=== PATIENT | female | born 1985 | race Caucasian/White ===

== ENCOUNTER → 2020-03-15 10:50 | Outpatient (BNVA) | payer OTHER, SELFPAY | PROVIDERS: PCP Internal Medicine; Referring Provider Internal Medicine; Visit Provider Surgery | DX: K60.2 Anal fissure, unspecified (principal); K64.8 Other hemorrhoids | CPT/HCPCS: 99202 ==

== ENCOUNTER 2020-03-30 08:03 | Day surgery (SDC) | payer OTHER, SELFPAY ==
[2020-03-27 10:45] VITALS: BMI 26.6
--- NOTE | 2020-03-29 09:23 | HO.ANESPROP2 ---
Documented by User: Caroline Jaimes 03/29/20 09:27 HPI - Anesthesia Eval Consult details Narrative: 34yo F for Lateral Internal Sphincterotomy, Poss Hemorrhoidectomy, EUA PMFSH Past Medical History Medical History (Updated 03/30/20 @ 11:52 by Samantha Gaspar) Acid reflux Anal fissure Asthma Sleep apnea Family History Family History Paternal Grandfather History of cancer of unknown primary site Maternal Grandmother History of leukemia Surgical History Surgical History (Updated 03/30/20 @ 11:49 by Samantha Gaspar) History of section History of gastric bypass History of tonsillectomy Tubal ligation status Social History Social History (Updated 03/30/20 @ 10:28 by Samantha Gaspar) Alcohol intake: never Smoking Status: Current every day smoker Smoked in Last 30 Days: Yes Advance Directives: No Advance Directives Information Provided: No Advance Directives on File: No Meds Allergies Allergy/AdvReac Type Severity Reaction Status Date / Time acetaminophen [From Tylenol] Allergy swelling Verified 03/15/20 11:01 of face and neck, hives Home Medications Medication Instructions Recorded Confirmed Type albuterol sulfate 90 mcg/actuation 2 puff INHALATION Q4H PRN 03/15/20 03/27/20 History aerosol inhaler cetirizine 10 mg tablet 10 mg PO DAILY 03/15/20 03/27/20 History multivitamin 1 tab PO DAILY 03/15/20 03/27/20 History pantoprazole 40 mg tablet,delayed 40 mg PO DAILY 03/15/20 03/30/20 History release sennosides 8.6 mg-docusate sodium 1 tab PO DAILY 03/15/20 03/27/20 History 50 mg tablet zinc oxide 13 % topical cream 1 applic TOPICAL DAILY 03/15/20 03/27/20 History Exam Exam Date and Time: March 29, 2020 0923 Height,Weight and Vital Signs: Height 4 ft 11 in Weight 59.874 kg Assessment and Plan Assessment Anesthesia Assessment: Chart Reviewed Documented by User: Samantha Gaspar 03/30/20 11:52 [facility] Past Medical History Medical History (Updated 03/30/20 @ 11:52 by Samantha Gaspar) Acid reflux Anal fissure Asthma Sleep apnea Family History Family History Paternal Grandfather History of cancer of unknown primary site Maternal Grandmother History of leukemia Family history of problems with anesthesia: No Surgical History Surgical History (Updated 03/30/20 @ 11:49 by Samantha Gaspar) History of section History of gastric bypass History of tonsillectomy Tubal ligation status History of Problems with Anesthesia: No Social History Social History (Updated 03/30/20 @ 10:28 by Samantha Gaspar) Alcohol intake: never Smoking Status: Current every day smoker Smoked in Last 30 Days: Yes Advance Directives: No Advance Directives Information Provided: No Advance Directives on File: No Meds Allergies Allergy/AdvReac Type Severity Reaction Status Date / Time acetaminophen [From Tylenol] Allergy swelling Verified 03/15/20 11:01 of face and neck, hives Home Medications Medication Instructions Recorded Confirmed Type albuterol sulfate 90 mcg/actuation 2 puff INHALATION Q4H PRN 03/15/20 03/27/20 History aerosol inhaler cetirizine 10 mg tablet 10 mg PO DAILY 03/15/20 03/27/20 History multivitamin 1 tab PO DAILY 03/15/20 03/27/20 History pantoprazole 40 mg tablet,delayed 40 mg PO DAILY 03/15/20 03/30/20 History release sennosides 8.6 mg-docusate sodium 1 tab PO DAILY 03/15/20 03/27/20 History 50 mg tablet zinc oxide 13 % topical cream 1 applic TOPICAL DAILY 03/15/20 03/27/20 History Exam Height,Weight and Vital Signs: Vital Signs Temp Pulse Resp BP Pulse Ox 03/30/20 08:24 98.3 F 73 16 97/54 L 97 Airway Mallampati Class: II TM Dist: >3cm Neck ROM: Full Heart: RRR Lungs: CTAB Assessment and Plan Assessment Anesthesia Assessment: Anesthesia Plan Discussed and Chart Reviewed Final Anesthetic Review NPO: Yes ASA Class: II Final Preanesthetic Review: No Changes in Pt Med Stat, Meds/Allgs Chart Reviewed and Consent Obtained/Reviewed Patient Risk: Low Procedure Risk: Low Anesthetic Plan Anesthetic Plan: GA Disposition: Standard PACU
[2020-03-30] VITALS (7 sets, daily range): BP systolic 97–118; BP diastolic 54–73; PULSE 71–96; RESP 16–20; TEMP 36.2–36.8; O2SAT 97–100
[2020-03-30] MEDS: Lactated Ringers 1,000 ML 100 ML IVCONT (08:26)
--- NOTE | 2020-03-30 09:10 | MHC.SHP ---
Pre-Procedural Eval Section A The patient is an INPATIENT: No Changes since office visit: Yes Patient answered all questions; No Cold of Flu in the past 2 weeks, No New Medical Problems and No Changes in Medication The History & Physical has been completed within 30 days and I have reviewed it.: Yes Section B Chief Complaint: Hemorrhoid Prolapse, Anal Fissure Allergies: Allergies Allergy/AdvReac Type Severity Reaction Status Date / Time acetaminophen [From Tylenol] Allergy swelling Verified 03/15/20 11:01 of face and neck, hives Plan Diagnosis/Plan: Unchanged Patient has been examined and remains a candidate for the planned procedure
--- NOTE | 2020-03-30 11:12 | PM.OP ---
Brief Operative Note Date of Service: 03/30/20 Pre-op diagnosis: Anal fissure, prolapsing internal hemorrhoid Post-op diagnosis: same Procedure: exam under anesthesia, lateral internal sphincterotomy, hemorrhoidectomy Implants: non Surgeon: Ash Villavicencio MD Anesthesia: GETA Trimming Machine Set Up Operator: Ilene Abbott Estimated blood loss (mL): 20 Pathology: other ( internal hemorrhoid 06:00 o'clock) Condition: stable Disposition: PACU
--- NOTE | 2020-03-30 11:13 | W.PM.OPN ---
Operative Note Operative Note Date of Service: 03/30/20 Narrative: Preoperative diagnosis: Anal fissure, internal hemorrhoid, prolapsing grade 3 Postoperative diagnosis: Same Procedure: Exam under anesthesia, lateral internal sphincterotomy, hemorrhoidectomy Surgeon: Ash Villavicencio MD Sec Reporting Consultant: LUCAS Barbosa Anesthesia: General Indications for procedure: 34-year-old female presenting with complaints of anal pain bleeding found on examination to have an anal fissure with tight internal anal sphincter. Patient reports a palpable prolapsing hemorrhoid as well. I was unable to see this due to the significance of her pain. She presents now for exam under anesthesia and possible hemorrhoidectomy as well as lateral internal sphincterotomy. Operative findings: Patient was found to have a prolapsing internal hemorrhoid in the 6 o'clock position while in the prone position. She had a large anterior wall anal fissure. Tight internal anal sphincter was identified. Specimen: Internal hemorrhoid Estimated blood loss: 20 mL Complications: None Procedure details: Patient was brought to the OR placed in a supine position. After administering general anesthesia she was placed in a prone position. A surgical time-out was called and the consent confirmed. Patient received preoperative antibiotics and Venodyne boots were in place. Local anesthesia consisting of 0.75% Sensorcaine with epinephrine was infiltrated circumferentially along the canal. Anoscope was inserted in the anal canal examined. The internal hemorrhoid was identified. No other hemorrhoids were identified. A tight internal anal sphincter was also identified along with the anal fissure. Incision was made in a longitudinal fashion over the internal sphincter on the right lateral wall. This was carried out through subcutaneous tissue using electrocautery. Hemostat was then used to bring up the internal anal sphincter. Electrocautery was then used to divide the internal anal sphincter. Hemostasis was achieved using light pressure. Attention was then directed to the anterior wall at the site of the prolapsing internal hemorrhoid. This was grasped with a hemostat. A chromic suture was then used to ligate below the anal mucosa and a baseball stitch placed below the hemostat. Hemorrhoid was then excised and sent to pathology for further examination. The suture was then tied. Wounds were again checked for hemostasis. A bolster was placed for packing into the anal canal which consisted of Surgicel, Xeroform, and a rolled 4 x 4 gauze sponge. This was then covered with an ABD pad. The patient tolerated the procedure well. Sponge, instrument, needle counts reported as correct. The patient was rolled to a supine position and awoken from anesthesia. She was subsequently transferred to PACU in stable condition.
[2020-03-30] MEDS: oxyCODONE HCl Immed Release 5 MG TABLET PO (12:07)
--- NOTE | 2020-03-30 14:53 | HO.POSTANES ---
Post Anesthesia Evaluation Post Anesthesia Evaluation Vital Signs: Vital Signs Temp Pulse Resp BP Pulse Ox 03/30/20 12:08 118/72 100 03/30/20 11:49 85 20 107/64 100 03/30/20 11:28 71 19 110/71 100 03/30/20 11:23 79 19 110/68 100 03/30/20 11:18 88 16 111/73 100 03/30/20 11:13 97.2 F 96 16 114/64 100 03/30/20 08:24 98.3 F 73 16 97/54 L 97 Anesthesia: General Mental Status: Awake Pain Control: Satisfactory Nausea/Vomiting: None Hydration: Adequate Anesthesia-Related Issues: No Anes. Related Issues
== END 2020-03-30 12:40 | disposition home or self-care (01) ==
PROVIDERS: PCP Internal Medicine; Visit Provider Surgery
PROC: (CPT 46255; principal; 2020-03-30 09:30)
DX: K64.2 Third degree hemorrhoids (principal); K60.2 Anal fissure, unspecified
CPT/HCPCS: 46255; 88304; J1100; J2250; J2405; J3010

== ENCOUNTER → 2020-04-07 09:18 | Outpatient (BNVA) | payer OTHER, SELFPAY | PROVIDERS: PCP Internal Medicine; Visit Provider Surgery | DX: K64.8 Other hemorrhoids (principal); K60.2 Anal fissure, unspecified | CPT/HCPCS: 99212 ==

== ENCOUNTER 2020-05-22 09:57 | Outpatient (REF) | payer OTHER, SELFPAY | END 2020-05-22 09:58 | disposition home or self-care (01) | LOC: HO.LAB 09:57 | PROVIDERS: PCP Internal Medicine; Visit Provider Surgery | DX: K61.1 Rectal abscess (principal); F17.200 Nicotine dependence, unspecified, uncomplicated; Z79.899 Other long term (current) drug therapy | CPT/HCPCS: 46050; 87071; 87205; 99212 ==

== ENCOUNTER → 2020-05-24 11:18 | Outpatient (BNVA) | payer OTHER, SELFPAY | PROVIDERS: PCP Internal Medicine; Visit Provider Surgery | DX: K61.1 Rectal abscess (principal) | CPT/HCPCS: 99212 ==

== ENCOUNTER 2020-05-25 09:09 | Day surgery (SDC) | payer OTHER, SELFPAY ==
--- NOTE | 2020-05-24 15:08 | P.CONAN_ITS ---
Documented by User: Caroline Jaimes 05/24/20 15:09 HPI - Anesthesia Eval Consult details Narrative: 34yo F for I&D Perirectal Abscess PMFSH Past Medical History Medical History Acid reflux Anal fissure Asthma Pancreatic cyst Sleep apnea Family History Family History Paternal Grandfather History of cancer of unknown primary site Maternal Grandmother History of leukemia Surgical History Surgical History History of section History of gastric bypass History of hemorrhoidectomy History of tonsillectomy Hx of varicose vein stripping Tubal ligation status Social History Social History Alcohol intake: never Smoking Status: Current every day smoker Cigarettes Per Day: 3 Use of substances other than those prescribed or required for medical reasons: No Advance Directives: No Advance Directives Information Provided: Yes Meds Allergies Allergy/AdvReac Type Severity Reaction Status Date / Time acetaminophen [From Tylenol] Allergy swelling Verified 05/25/20 09:15 of face and neck, hives Home Medications Medication Instructions Recorded Confirmed Type albuterol sulfate 90 mcg/actuation 2 puff INHALATION Q4H PRN 03/15/20 05/24/20 History aerosol inhaler cetirizine 10 mg tablet 10 mg PO DAILY 03/15/20 05/24/20 History multivitamin 1 tab PO DAILY 03/15/20 05/24/20 History pantoprazole 40 mg tablet,delayed 40 mg PO DAILY 03/15/20 05/24/20 History release sennosides 8.6 mg-docusate sodium 1 tab PO DAILY 03/15/20 05/24/20 History 50 mg tablet zinc oxide 13 % topical cream 1 applic TOPICAL DAILY 03/15/20 05/24/20 History amoxicillin 875 mg-potassium 1 tab PO BID 05/22/20 05/24/20 History clavulanate 125 mg tablet Exam Exam Date and Time: May 24, 2020 1508 Assessment and Plan Assessment Anesthesia Assessment: Chart Reviewed Documented by User: Leah Morel 05/25/20 10:25 [facility] Past Medical History Medical History Acid reflux Anal fissure Asthma Pancreatic cyst Sleep apnea Family History Family History Paternal Grandfather History of cancer of unknown primary site Maternal Grandmother History of leukemia Surgical History Surgical History History of section History of gastric bypass History of hemorrhoidectomy History of tonsillectomy Hx of varicose vein stripping Tubal ligation status Social History Social History Alcohol intake: never Smoking Status: Current every day smoker Cigarettes Per Day: 3 Use of substances other than those prescribed or required for medical reasons: No Advance Directives: No Advance Directives Information Provided: Yes Meds Allergies Allergy/AdvReac Type Severity Reaction Status Date / Time acetaminophen [From Tylenol] Allergy swelling Verified 05/25/20 09:15 of face and neck, hives Home Medications Medication Instructions Recorded Confirmed Type albuterol sulfate 90 mcg/actuation 2 puff INHALATION Q4H PRN 03/15/20 05/24/20 History aerosol inhaler cetirizine 10 mg tablet 10 mg PO DAILY 03/15/20 05/24/20 History multivitamin 1 tab PO DAILY 03/15/20 05/24/20 History pantoprazole 40 mg tablet,delayed 40 mg PO DAILY 03/15/20 05/24/20 History release sennosides 8.6 mg-docusate sodium 1 tab PO DAILY 03/15/20 05/24/20 History 50 mg tablet zinc oxide 13 % topical cream 1 applic TOPICAL DAILY 03/15/20 05/24/20 History amoxicillin 875 mg-potassium 1 tab PO BID 05/22/20 05/24/20 History clavulanate 125 mg tablet Exam Airway Mallampati Class: I TM Dist: >3cm Neck ROM: Full Denture: Upper Heart: RRR Lungs: CTA Assessment and Plan Assessment Anesthesia Assessment: Anesthesia Plan Discussed and Chart Reviewed Final Anesthetic Review NPO: Yes ASA Class: II Final Preanesthetic Review: Meds/Allgs Chart Reviewed, Consent Obtained/Reviewed and Anes Risks/Benef Reviewed Patient Risk: Low Procedure Risk: Low Anesthetic Plan Anesthetic Plan: GA Disposition: Standard PACU
[2020-05-25] VITALS (12 sets, daily range): BP systolic 86–103; BP diastolic 50–67; PULSE 52–77; RESP 12–16; TEMP 36.8–37.2; O2SAT 98–100; BMI 27.0
--- NOTE | 2020-05-25 09:40 | MHC.SHP ---
Pre-Procedural Eval Section A The patient is an INPATIENT: No Changes since office visit: Yes Patient answered all questions; No Cold of Flu in the past 2 weeks, No New Medical Problems and No Changes in Medication The History & Physical has been completed within 30 days and I have reviewed it.: Yes Section B Chief Complaint: Perirectal Abscess Allergies: Allergies Allergy/AdvReac Type Severity Reaction Status Date / Time acetaminophen [From Tylenol] Allergy swelling Verified 05/25/20 09:15 of face and neck, hives Plan Diagnosis/Plan: Unchanged I have reviewed the history and physical and performed a pertinent physical examination on my patient. No changes have occurred unless specified.
[2020-05-25] MEDS: Lactated Ringers 1,000 ML 100 ML IVCONT (10:03)
--- NOTE | 2020-05-25 11:35 | PM.OP ---
Brief Operative Note Date of Service: 05/25/20 <SHANNON Barbosa Last Filed: 05/25/20 11:41> Pre-op diagnosis: Perirectal abscess <SHANNON Barbosa Last Filed: 05/25/20 11:41> Post-op diagnosis: same <SHANNON Barbosa Last Filed: 05/25/20 11:41> Procedure: Incision and drainage of perirectal abscess <SHANNON Barbosa Last Filed: 05/25/20 11:41> Implants: 1 inch iodoform packing <SHANNON Barbosa Last Filed: 05/25/20 11:41> Surgeon: ANNETTE WARD MD <SHANNON Barbosa Last Filed: 05/25/20 11:41> Anesthesia: GLMA <SHANNON Barbosa Last Filed: 05/25/20 11:41> Estimated blood loss (mL): 5 <SHANNON Barbosa Last Filed: 05/25/20 11:41> Pathology: none sent <SHANNON Barbosa Last Filed: 05/25/20 11:41> Condition: stable <SHANNON Barbosa Last Filed: 05/25/20 11:41> Disposition: PACU <SHANNON Barbosa Last Filed: 05/25/20 11:41>
--- NOTE | 2020-05-25 11:48 | P.OP_ITS ---
Operative Note Operative Note Date of Service: 05/25/20 Narrative: Preoperative diagnosis: Perirectal abscess Postoperative diagnosis: Same Procedure: Incision and drainage of perirectal abscess Surgeon: Ash Villavicencio MD Anesthesia: General LMA Indications for procedure this is a 34-year-old female patient with a previous history of a anal fissures status post lateral internal sphincterotomy now presenting with a perirectal abscess approximately 2 months following the proc edure. On examination patient has a large fluctuant area which was initially incised and drained in the office however the patient continued to have pain and discharge with a large pocket. She presents now for a complete incision and drainage. Operative findings: Patient was found to have a large subcutaneous pocket involving the right perianal wall extending up past the internal anal sphincter. The wound was opened, irrigated and packed with 1 in iodoform gauze. Specimen: None Estimated blood loss: 10 mL Complications: None Procedure details: Patient was brought to the OR placed in a supine position. After administering general anesthesia she was rotated to a right lateral decubitus position. The perianal skin was prepped with Betadine and draped in a sterile fashion. A surgical time-out was called the consent confirmed. Patient received preoperative antibiotics and Venodyne boots were in place. Local anesthesia consisting of 0.25% Sensorcaine with epinephrine was in filtrated in perirectal location. The abscess cavity was identified in the right lateral wall. Incision was made with a 15 blade and carried down through subcutaneous tissue into the abscess cavity. Blunt finger dissection was then used to open up the cavity. The wounds were then irrigated thoroughly with saline solution. A wound culture had previously been performed and was not repeated today. Wounds were then packed with 1 in iodoform gauze. Sterile dressings were then applied. The patient tolerated the procedure well. Sponge, instrument, needle counts reported as correct. The patient was transferred to PACU in stable condition.
[2020-05-25] MEDS: oxyCODONE HCl Immed Release 5 MG TABLET PO (12:20)
--- NOTE | 2020-05-25 13:50 | HO.POSTANES ---
Post Anesthesia Evaluation Post Anesthesia Evaluation Vital Signs: Vital Signs Temp Pulse Resp BP Pulse Ox 05/25/20 12:17 98.3 F 61 16 97/67 100 05/25/20 12:14 66 16 97/67 98 05/25/20 12:01 53 16 94/54 L 100 05/25/20 11:56 77 16 88/50 L 100 05/25/20 11:51 58 16 91/60 100 05/25/20 11:46 98.3 F 56 12 88/53 L 100 05/25/20 09:38 99.0 F 60 16 103/62 100 Anesthesia: General LMA Mental Status: Awake Pain Control: Satisfactory Nausea/Vomiting: None Hydration: Adequate Anesthesia-Related Issues: No Anes. Related Issues
== END 2020-05-25 14:05 | disposition home or self-care (01) ==
PROVIDERS: PCP Internal Medicine; Visit Provider Surgery
PROC: (CPT 46040; principal; 2020-05-25 10:50)
DX: K61.1 Rectal abscess (principal); J45.909 Unspecified asthma, uncomplicated; Z98.84 Bariatric surgery status; F17.210 Nicotine dependence, cigarettes, uncomplicated; Z79.899 Other long term (current) drug therapy
CPT/HCPCS: 46040; J1100; J1885; J2250; J2405; J2765; J3010

== ENCOUNTER → 2020-06-02 09:58 | Outpatient (BNVA) | payer OTHER, SELFPAY | PROVIDERS: PCP Internal Medicine; Visit Provider Surgery | DX: K61.1 Rectal abscess (principal) | CPT/HCPCS: 99212 ==

== ENCOUNTER 2023-11-29 09:11 | Emergency (ER) | payer OTHER, SELFPAY ==
--- NOTE | ~2023-11-29 | XR_ITS ---
EXAMINATION: XR SHOULDER, LEFT CLINICAL INFORMATION: Reason for Exam L sided shoulder pain COMPARISON: None TECHNIQUE: Two views of the shoulder. FINDINGS: No acute fracture or dislocation. Joint spaces are maintained. Suspect some mineralization in the acromioclavicular joint which can be seen in the setting of hydroxyapatite deposition disease. Soft tissues are unremarkable. XR/XR shoulder LT min 2V IMPRESSION: 1. No acute osseous abnormality. 2. Suspect some mineralization in the acromioclavicular joint which can be seen in the setting of hydroxyapatite deposition disease.
--- NOTE | ~2023-11-29 | XR_ITS ---
EXAMINATION: XR LUMBOSACRAL SPINE CLINICAL INFORMATION: Reason for Exam lower back pain COMPARISON: None TECHNIQUE: 3 views of the lumbar spine FINDINGS: 5 nonrib-bearing lumbar-type vertebral bodies. 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 Vertebral body heights are maintained. Alignment is maintained. Disc space heights are maintained. Right upper quadrant cholecystectomy clips. Mild osteoarthritis of the hips with acetabular osteophytes. Amorphous mineralization overlying the upper margin of the left kidney measuring 2.6 cm of uncertain etiology. XR/XR lumbar spine 2-3V IMPRESSION: 1. Vertebral body heights are maintained. 2. Mild osteoarthritis of the hips with acetabular osteophytes. 3. Amorphous mineralization overlying the upper margin of the left kidney measuring 2.6 cm of uncertain etiology, though enteric contrast, partially calcified adrenal nodule are partially calcified renal lesion could have this appearance, and could be further evaluated with a contrast enhanced CT abdomen.
--- NOTE | ~2023-11-29 | CT_ITS ---
EXAM: CT scan of the head and cervical spine. INDICATION: Reason for Exam hedache, neck pain TECHNIQUE: A noncontrast CT scan was performed from the skull base to the vertex. A noncontrast CT scan of the cervical spine was performed from the base of the skull through T1 at 2.5 mm and 1.25 mm collimation. Coronal and sagittal reformats were obtained at the acquisition workstation. This CT examination was performed using dose optimization techniques as appropriate, variously including the following: *Automated exposure control *Adjustment of mA and/or kV according to patient size (this includes techniques or standardized protocols for targeted exams where dose is matched to indication/reason for exam; i.e. extremities or head) *Use of iterative reconstruction technique DLP: 10/11/1996 mGy-cm COMPARISON: None FINDINGS: Head: There is no evidence of acute intracranial hemorrhage or territorial infarction. Hilton-white matter differentiation is preserved. No abnormal mass effect or midline shift. No extra-axial fluid collections. No abnormal attenuation is demonstrated within the brain parenchyma. The ventricles and sulcal spaces are proportional without hydrocephalus. Proportional prominence of the ventricles and sulcal spaces. No acute osseous or soft tissue abnormalities. The mastoid air cells and visualized portions of the paranasal sinuses are well aerated. Cervical Spine: The atlantooccipital and atlantoaxial articulations remain well aligned. Straightening of the normal cervical lordosis. Otherwise, there is anatomic alignment of the vertebral bodies and posterior elements. No evidence of acute fracture or subluxation. The vertebral body heights and disc spaces are maintained. There is no prevertebral soft tissue swelling. The thyroid gland and remaining cervical soft tissues are normal in appearance. The lung apices demonstrate no abnormalities. CT/CT cervical spine wo IV con IMPRESSION: No acute intracranial pathology. No fracture subluxation cervical spine.
[2023-11-29 09:17] VITALS: BP 112/70; PULSE 61; RESP 18; TEMP 37; O2SAT 98; BMI 35.3
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
--- NOTE | 2023-11-29 09:45 | PC.NURSE ---
pt to CT at this time.
[2023-11-29] MEDS: Ketorolac Tromethamine 30 MG/ML VIAL IM (10:35)
--- NOTE | 2023-11-29 10:37 | PC.NURSE ---
medication administered per provider order. effectiveness pending. scan results pending at this time.
[2023-11-29 13:10] VITALS: BP 112/70; PULSE 61; RESP 18; TEMP 37; O2SAT 98
== END 2023-11-29 13:11 | disposition home or self-care (01) ==
PROVIDERS: Emergency Provider Emergency Medicine; PCP Internal Medicine
DX: S13.4XXA Sprain of ligaments of cervical spine, initial encounter (principal); S39.012A Strain of muscle, fascia and tendon of lower back, initial encounter; V43.52XA Car driver injured in collision with other type car in traffic accident, initial encounter; M25.512 Pain in left shoulder; M19.012 Primary osteoarthritis, left shoulder; Y93.89 Activity, other specified; Y92.410 Unspecified street and highway as the place of occurrence of the external cause; Y99.0 Civilian activity done for income or pay
CPT/HCPCS: 70450; 72100; 72125; 73030; 96372; 99283; 99284; J1885